=== PATIENT | male | born 1980 | race Caucasian/White ===

== ENCOUNTER 2017-01-21 19:00 | Emergency (ER) | payer OTHER ==
[~2017-01-21] VITALS: Ht 185.4 cm; Wt 129.3 kg
[2017-01-21] MEDS ORDERED: NAPROSYN500 MG PO (19:31)
[2017-01-21] MEDS ORDERED: VIBRAMYCIN100 MG PO (19:31)
== END 2017-01-21 20:18 | disposition home or self-care (01) ==
LOC: ED 19:00
DX: S61.412A Laceration without foreign body of left hand, initial encounter (principal); R03.0 Elevated blood-pressure reading, without diagnosis of hypertension; Z88.0 Allergy status to penicillin; W27.2XXA Contact with scissors, initial encounter; Y93.89 Activity, other specified; Y92.89 Other specified places as the place of occurrence of the external cause; Y99.8 Other external cause status

== ENCOUNTER 2017-01-26 07:48 | Emergency (ER) | payer OTHER ==
[~2017-01-26] VITALS: Ht 154.9 cm; Wt 129.3 kg
[~2017-01-26 07:48] MED LIST: NAPROSYN500 MG PO; VIBRAMYCIN100 MG PO
== END 2017-01-26 09:04 | disposition home or self-care (01) ==
LOC: ED 07:48
DX: S61.412D Laceration without foreign body of left hand, subsequent encounter (principal); Z88.0 Allergy status to penicillin; X58.XXXD Exposure to other specified factors, subsequent encounter; Y92.9 Unspecified place or not applicable; Y99.9 Unspecified external cause status

== ENCOUNTER 2017-01-31 11:26 | Emergency (ER) | payer OTHER ==
[~2017-01-31] VITALS: Wt 129.3 kg
== END 2017-01-31 11:55 | disposition home or self-care (01) ==
LOC: ED 11:26
DX: S61.422D Laceration with foreign body of left hand, subsequent encounter (principal); Z88.0 Allergy status to penicillin; W26.8XXD Contact with other sharp object(s), not elsewhere classified, subsequent encounter